=== PATIENT | female | born 1950 | race Caucasian/White ===

== ENCOUNTER 2018-02-09 15:55 | Inpatient (IN) | payer OTHER, MEDICARE ==
[~2018-02-09] VITALS: Ht 172.7 cm; Wt 87.9 kg
[2018-02-09 16:07] VITALS: BP 163/81; PULSE 73; RESP 18; TEMP 98; O2SAT 98
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
[2018-02-09] MEDS ORDERED: NALOXONE HCL 0.4 MG/ML AMP IV PUSH PRN (17:30)
[2018-02-09] MEDS ORDERED: BISACODYL 10 MG SUPP RECTAL PRN (17:30)
[2018-02-09] MEDS ORDERED: ONDANSETRON HCL 4 MG/2 ML VIAL IV PUSH PRN (17:30)
[2018-02-09] MEDS ORDERED: SENNOSIDES 8.6 MG TAB PO PRN (17:30)
[2018-02-09] MEDS ORDERED: LACTULOSE SYRUP 20 GM/30 ML CUP PO PRN (17:30)
[2018-02-09] MEDS ORDERED: MAGNESIUM HYDROXIDE SUSP 30 ML CUP PO PRN (17:30)
[2018-02-09] MEDS ORDERED: CHLORHEXIDINE GLUCONATE 2 % 1 PACK (2 CLOTHS) TOP PRN (17:30)
[2018-02-09] MEDS ORDERED: MISCELLANEOUS NURSING INFORMATION XX SCH (17:30)
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
[2018-02-09 19:30] VITALS: BP 151/72; PULSE 68; RESP 20; O2SAT 97; O2SAT 99
[2018-02-09] MEDS: GABAPENTIN 100 MG CAP PO SCH (19:50)
[2018-02-09] MEDS: SODIUM CHLOR 0.9% 1000 ML INJ 1,000 ML IV SCH (19:50)
[2018-02-09 20:00] VITALS: BP 176/88; PULSE 70; PULSE 78; RESP 15; RESP 18; TEMP 97.9; O2SAT 95
[2018-02-09] MEDS: DOCUSATE SODIUM 50 MG/SENNA 8.6 MG TAB PO SCH (21:00)
[2018-02-09] MEDS: ACETAMINOPHEN 1000 MG/100 ML 100 ML IV SCH ×2 (21:06→23:59)
[2018-02-09] MEDS: LIDOCAINE HCL 5% PATCH T-DERMAL SCH (21:07)
[2018-02-09] MEDS: METHOCARBAMOL 500 MG TAB PO SCH (21:07)
[2018-02-09 21:22] VITALS: O2SAT 95
[2018-02-09] MEDS: HYDROmorphone HCL PCA 6 MG/30 ML IV SCH (21:26)
[2018-02-09 22:00] VITALS: PULSE 63
[2018-02-09] MEDS: PCA - TOTAL MG DILAUDID DELIVERED PER SHIFT OTHER SCH (22:00)
[2018-02-09] MEDS: HEPARIN SODIUM - SQ 10,000 UNITS/ML VIAL SQ SCH (22:02)
[2018-02-10] VITALS (14 sets, daily range): BP systolic 95–140; BP diastolic 58–79; PULSE 52–82; RESP 14–24; TEMP 97.3–99.1; O2SAT 93–99
[2018-02-10] MEDS: CHLORHEXIDINE GLUCONATE 2 % 1 PACK (2 CLOTHS) TOP SCH (03:44)
[2018-02-10 04:50] LABS: AUTOMATED NEUTROPHIL # 2.9 TH/MM3 (1.8-7.7); BASOPHIL % 0.7 % (0.0-2.0); EOSINOPHIL # 0.1 TH/MM3 (0-0.4); EOSINOPHIL % 1.1 % (0.0-4.0); HEMATOCRIT 32.8 % (35.0-46.0); LYMPH % 29.3 % (9.0-44.0); LYMPHOCYTE # 1.5 TH/MM3 (1.0-4.8); MEAN CELL VOLUME 75.1 FL (80.0-100.0); MEAN CORPUSCULAR HEMOGLOBIN 25.2 PG (27.0-34.0); MEAN CORPUSCULAR HGB CONC 33.5 % (32.0-36.0); MEAN PLATELET VOLUME 8.1 FL (7.0-11.0); MONO % 10.2 % (0.0-8.0); MONOCYTE # 0.5 TH/MM3 (0-0.9); NEUT % 58.7 % (16.0-70.0); PLATELET COUNT 275 TH/MM3 (150-450); RED BLOOD COUNT 4.37 MIL/MM3 (4.00-5.30); RED CELL DISTRIBUTION WIDTH 16.3 % (11.6-17.2)
[2018-02-10] MEDS: SODIUM CHLOR 0.9% 1000 ML INJ 1,000 ML IV SCH ×2 (05:12→17:07)
[2018-02-10 05:21] LABS: BICARBONATE 27.2 MEQ/L (21.0-32.0); CALCIUM 8.6 MG/DL (8.5-10.1); CREATININE 0.74 MG/DL (0.50-1.00)
[2018-02-10] MEDS: ACETAMINOPHEN 1000 MG/100 ML 100 ML IV SCH ×2 (05:39→13:37)
[2018-02-10] MEDS: METHOCARBAMOL 500 MG TAB PO SCH ×3 (05:39→23:38)
[2018-02-10] MEDS: HEPARIN SODIUM - SQ 10,000 UNITS/ML VIAL SQ SCH ×3 (05:39→23:38)
[2018-02-10] MEDS: PCA - TOTAL MG DILAUDID DELIVERED PER SHIFT OTHER SCH ×2 (06:00→18:00)
--- NOTE | 2018-02-10 07:11 | RADRPT ---
EXAM DATE/TIME: 02/10/2018 03:26 [facility] COMPARISON: No previous studies available for comparison. INDICATIONS : Multiple rib fractures, pneumothorax. MEDICAL HISTORY : None. SURGICAL HISTORY : None. ENCOUNTER: Initial ACUITY: 1 day PAIN SCORE: 5/10 LOCATION: Left chest FINDINGS: A single view of the chest demonstrates multiple lateral rib fractures. Minimal atelectatic changes i n the left base but no pneumothorax. Heart size is normal. Degenerative spurring of the dorsal spine. CONCLUSION: 1. Multiple left-sided rib fractures. No pneumothorax. 2. Left basilar atelectatic changes. Lungs are otherwise clear. Martin Polo MD on February 10, 2018 at 7:08 Board Certified Radiologist. This report was verified electronically.
[2018-02-10] MEDS: REMOVE OLD PATCH T-DERMAL SCH ×2 (09:00→21:00)
[2018-02-10] MEDS: LIDOCAINE HCL 5% PATCH T-DERMAL SCH (09:50)
[2018-02-10] MEDS: DOCUSATE SODIUM 50 MG/SENNA 8.6 MG TAB PO SCH ×2 (09:50→21:00)
[2018-02-10] MEDS: GABAPENTIN 100 MG CAP PO SCH ×3 (09:51→18:10)
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
[2018-02-10] MEDS: HYDROmorphone HCL PCA 6 MG/30 ML IV SCH (19:51)
[2018-02-10] MEDS: FAMOTIDINE 20 MG TAB PO SCH (23:38)
[2018-02-11] VITALS (14 sets, daily range): BP systolic 140–165; BP diastolic 65–80; PULSE 61–88; RESP 18–23; TEMP 98.3–99; O2SAT 94–100
[2018-02-11] MEDS: CHLORHEXIDINE GLUCONATE 2 % 1 PACK (2 CLOTHS) TOP SCH ×2 (04:00→21:41)
--- NOTE | 2018-02-11 04:31 | RADRPT ---
EXAM DATE/TIME: 02/11/2018 02:44 [facility] COMPARISON: CHEST SINGLE AP, February 10, 2018, 3:26. INDICATIONS : Pneumothorax and multiple rib fractures. MEDICAL HISTORY : None. SURGICAL HISTORY : None. ENCOUNTER: Subsequent ACUITY: 2 days PAIN SCORE: 5/10 LOCATION: Left chest FINDINGS: A single view of the chest demonstrates worsening consolidation in the left lung base with possible d eveloping effusion. Right lung is clear. Heart size is borderline. Degenerative spurring of the dorsa l spine. Left-sided rib fractures CONCLUSION: Worsening consolidation in the left base. Possible developing effusion. Martin Polo MD on February 11, 2018 at 4:27 Board Certified Radiologist. This report was verified electronically.
[2018-02-11] MEDS: METHOCARBAMOL 500 MG TAB PO SCH ×3 (05:54→21:39)
[2018-02-11] MEDS: HEPARIN SODIUM - SQ 10,000 UNITS/ML VIAL SQ SCH ×3 (05:54→21:40)
[2018-02-11] MEDS: GABAPENTIN 100 MG CAP PO SCH ×3 (08:45→18:10)
[2018-02-11] MEDS: FAMOTIDINE 20 MG TAB PO SCH ×2 (08:45→20:11)
[2018-02-11] MEDS: DOCUSATE SODIUM 50 MG/SENNA 8.6 MG TAB PO SCH ×2 (08:45→20:11)
[2018-02-11] MEDS ORDERED: RESP: ALBUTEROL 2.5 MG/IPRATROPIUM 0.5 MG NEB (PRN) NEB (08:45)
[2018-02-11] MEDS: REMOVE OLD PATCH T-DERMAL SCH ×2 (08:46→21:00)
[2018-02-11] MEDS: LIDOCAINE HCL 5% PATCH T-DERMAL SCH (08:46)
[2018-02-11] MEDS ORDERED: ATENOLOL 50 MG TAB PO ONE (10:45)
[2018-02-11] MEDS: FUROSEMIDE 20 MG TAB PO SCH (12:04)
[2018-02-11] MEDS: SODIUM CHLOR 0.9% 1000 ML INJ 1,000 ML IV SCH ×2 (12:15→16:57)
[2018-02-11] MEDS ORDERED: ATEN50TA PO (12:49)
[2018-02-11] MEDS: PCA - TOTAL MG DILAUDID DELIVERED PER SHIFT OTHER SCH ×2 (14:00→21:40)
[2018-02-11] MEDS: RESP: ALBUTEROL 2.5 MG/IPRATROPIUM 0.5 MG NEB (SCH) NEB ×2 (16:42→21:17)
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
[2018-02-11] MEDS: HYDROmorphone HCL PCA 6 MG/30 ML IV SCH (23:29)
[2018-02-12] VITALS (9 sets, daily range): BP systolic 113–181; BP diastolic 60–81; PULSE 68–87; RESP 17–19; TEMP 97–98.7; O2SAT 91–99
[2018-02-12] MEDS: RESP: ALBUTEROL 2.5 MG/IPRATROPIUM 0.5 MG NEB (SCH) NEB ×4 (04:00→19:57)
[2018-02-12 04:32] LABS: AUTOMATED NEUTROPHIL # 3.5 TH/MM3 (1.8-7.7); BASOPHIL % 0.7 % (0.0-2.0); EOSINOPHIL # 0.1 TH/MM3 (0-0.4); EOSINOPHIL % 2.5 % (0.0-4.0); HEMATOCRIT 35.7 % (35.0-46.0); HEMOGLOBIN 11.9 GM/DL (11.6-15.3); LYMPH % 28.6 % (9.0-44.0); LYMPHOCYTE # 1.7 TH/MM3 (1.0-4.8); MEAN CELL VOLUME 75.8 FL (80.0-100.0); MEAN CORPUSCULAR HEMOGLOBIN 25.3 PG (27.0-34.0); MEAN CORPUSCULAR HGB CONC 33.3 % (32.0-36.0); MEAN PLATELET VOLUME 8.5 FL (7.0-11.0); MONO % 10.1 % (0.0-8.0); MONOCYTE # 0.6 TH/MM3 (0-0.9); NEUT % 58.1 % (16.0-70.0); PLATELET COUNT 265 TH/MM3 (150-450); RED CELL DISTRIBUTION WIDTH 16.5 % (11.6-17.2)
[2018-02-12 04:45] LABS: BICARBONATE 29.2 MEQ/L (21.0-32.0); CREATININE 0.55 MG/DL (0.50-1.00)
[2018-02-12] MEDS: SODIUM CHLOR 0.9% 1000 ML INJ 1,000 ML IV SCH (04:52)
[2018-02-12] MEDS: PCA - TOTAL MG DILAUDID DELIVERED PER SHIFT OTHER SCH (06:00)
--- NOTE | 2018-02-12 06:43 | RADRPT ---
EXAM DATE/TIME: 02/12/2018 05:28 [facility] COMPARISON: CHEST SINGLE AP, February 11, 2018, 2:44. INDICATIONS : Short of breath, pain left chest, evaluate pneumothorax and rib fractures MEDICAL HISTORY : pneumothorax, multiple rib fractures SURGICAL HISTORY : None. ENCOUNTER: Initial ACUITY: 3 days PAIN SCORE: 10/10 LOCATION: Left chest FINDINGS: There is increasing consolidation in the left lower lung with complete loss of delineation of the lef t hemidiaphragm. The right lung is clear. No evidence of pneumothorax. Multiple displaced left rib fractures CONCLUSION: Increasing left lower lobe consolidation. No evidence of pneumothorax. Leodan Nunez MD on February 12, 2018 at 6:41 Board Certified Radiologist. This report was verified electronically.
[2018-02-12] MEDS ORDERED: HYDROmorphone HCL PF 2 MG/ML VIAL IV PUSH PRN (07:30)
[2018-02-12] MEDS ORDERED: oxyCODONE/ACETAMINOPHEN 10 MG/325 MG TAB PO PRN (07:30)
[2018-02-12] MEDS ORDERED: ENALAPRILAT 1.25 MG/ML VIAL IV PUSH PRN (07:30)
[2018-02-12] MEDS: FAMOTIDINE 20 MG TAB PO SCH ×2 (08:18→21:39)
[2018-02-12] MEDS: FUROSEMIDE 20 MG TAB PO SCH (08:18)
[2018-02-12] MEDS: LIDOCAINE HCL 5% PATCH T-DERMAL SCH (08:18)
[2018-02-12] MEDS: GABAPENTIN 100 MG CAP PO SCH ×3 (08:18→17:42)
[2018-02-12] MEDS: IBUPROFEN 600 MG TAB PO SCH ×3 (08:18→21:38)
[2018-02-12] MEDS: HEPARIN SODIUM - SQ 10,000 UNITS/ML VIAL SQ SCH ×3 (08:19→21:40)
[2018-02-12] MEDS: REMOVE OLD PATCH T-DERMAL SCH ×2 (08:19→21:43)
[2018-02-12] MEDS: DOCUSATE SODIUM 50 MG/SENNA 8.6 MG TAB PO SCH ×2 (08:19→21:39)
[2018-02-12] MEDS: oxyCODONE/ACETAMINOPHEN 5 MG/325 MG TAB PO PRN ×4 (08:25→21:39)
[2018-02-12] MEDS: METHOCARBAMOL 500 MG TAB PO SCH ×3 (08:25→21:39)
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
[2018-02-13] VITALS (7 sets, daily range): BP systolic 125–163; BP diastolic 70–79; PULSE 70–104; RESP 17–19; TEMP 96.1–97.9; O2SAT 92–99
[2018-02-13] MEDS: RESP: ALBUTEROL 2.5 MG/IPRATROPIUM 0.5 MG NEB (SCH) NEB ×4 (03:29→21:08)
[2018-02-13] MEDS: oxyCODONE/ACETAMINOPHEN 5 MG/325 MG TAB PO PRN ×5 (05:40→21:38)
[2018-02-13] MEDS: METHOCARBAMOL 500 MG TAB PO SCH ×3 (05:40→21:38)
[2018-02-13] MEDS: IBUPROFEN 600 MG TAB PO SCH ×3 (05:40→21:38)
[2018-02-13] MEDS: HEPARIN SODIUM - SQ 10,000 UNITS/ML VIAL SQ SCH ×3 (05:40→21:39)
--- NOTE | 2018-02-13 07:05 | RADRPT ---
EXAM DATE/TIME: 02/13/2018 05:38 [place] COMPARISON: CHEST SINGLE AP, February 12, 2018, 5:28. INDICATIONS : Short of breath, chest and rib discomfort MEDICAL HISTORY : pneumothorax, rib fractures SURGICAL HISTORY : None. ENCOUNTER: Subsequent ACUITY: 4 - 6 days PAIN SCORE: 6/10 LOCATION: Bilateral chest FINDINGS: Consolidation in the left lower lung with loss of delineation of the entire left hemidiaphragm. Ther e is also hazy opacity of the lower left chest suggesting a combination of consolidation and pleural effusion. Right lung is clear. The heart is normal size. Left rib fractures. CONCLUSION: Persistent left lower lobe consolidation and probable associated pleural effusion. Leodan Nunez MD on February 13, 2018 at 7:03 Board Certified Radiologist. This report was verified electronically.
[2018-02-13] MEDS ORDERED: PERI PO (07:18)
[2018-02-13] MEDS ORDERED: MAGN30S PO (07:18)
[2018-02-13] MEDS ORDERED: BISACODYL 10 MG SUPP RECTAL ONE (07:30)
[2018-02-13] MEDS ORDERED: BISACODYL EC 5 MG TABEC PO ONE (07:30)
[2018-02-13] MEDS: REMOVE OLD PATCH T-DERMAL SCH ×2 (09:00→21:42)
[2018-02-13] MEDS: GABAPENTIN 100 MG CAP PO SCH ×3 (09:15→17:18)
[2018-02-13] MEDS: FUROSEMIDE 20 MG TAB PO SCH (09:16)
[2018-02-13] MEDS: DOCUSATE SODIUM 50 MG/SENNA 8.6 MG TAB PO SCH ×2 (09:16→21:38)
[2018-02-13] MEDS: FAMOTIDINE 20 MG TAB PO SCH ×2 (09:16→21:38)
[2018-02-13] MEDS: LIDOCAINE HCL 5% PATCH T-DERMAL SCH (09:17)
[2018-02-13] MEDS ORDERED: GABA100C4 PO (12:58)
[2018-02-13] MEDS ORDERED: OXYC1TAB63 PO (12:58)
[2018-02-13] MEDS ORDERED: IBUP-232 PO (12:58)
[2018-02-13] MEDS ORDERED: METH500T3 PO (12:58)
[2018-02-13] MEDS ORDERED: LIDO1ADH4 T-DERMAL (12:58)
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
[2018-02-13] MEDS ORDERED: PADIMATE (CHAPSTICK) 4.5 GM TUBE TOPICAL PRN (23:00)
[2018-02-14] MEDS: oxyCODONE/ACETAMINOPHEN 5 MG/325 MG TAB PO PRN ×2 (01:55→06:04)
[2018-02-14 04:18] VITALS: O2SAT 93
[2018-02-14] MEDS: IBUPROFEN 600 MG TAB PO SCH ×3 (06:04→22:18)
[2018-02-14] MEDS: HEPARIN SODIUM - SQ 10,000 UNITS/ML VIAL SQ SCH ×3 (06:04→22:18)
[2018-02-14] MEDS: METHOCARBAMOL 500 MG TAB PO SCH ×3 (06:04→22:18)
[2018-02-14 07:36] VITALS: BP 139/71; PULSE 90; RESP 18; TEMP 96.1; O2SAT 94
[2018-02-14] MEDS: RESP: ALBUTEROL 2.5 MG/IPRATROPIUM 0.5 MG NEB (SCH) NEB ×3 (08:13→22:14)
[2018-02-14 08:27] VITALS: O2SAT 95
[2018-02-14] MEDS: REMOVE OLD PATCH T-DERMAL SCH ×2 (09:00→22:22)
[2018-02-14] MEDS: DOCUSATE SODIUM 50 MG/SENNA 8.6 MG TAB PO SCH ×2 (09:08→22:18)
[2018-02-14] MEDS: FAMOTIDINE 20 MG TAB PO SCH ×2 (09:08→22:18)
[2018-02-14] MEDS: GABAPENTIN 100 MG CAP PO SCH ×3 (09:09→18:29)
[2018-02-14] MEDS: FUROSEMIDE 20 MG TAB PO SCH (09:09)
[2018-02-14] MEDS: LIDOCAINE HCL 5% PATCH T-DERMAL SCH (09:09)
[2018-02-14 11:51] VITALS: BP 119/73; PULSE 90; RESP 18; TEMP 96.7; O2SAT 94
[2018-02-14 15:38] VITALS: BP 147/80; PULSE 100; RESP 18; TEMP 97.3; O2SAT 92
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
[2018-02-14 22:14] VITALS: O2SAT 92
[2018-02-15] VITALS (7 sets, daily range): BP systolic 121–158; BP diastolic 71–81; PULSE 93–112; RESP 16–20; TEMP 96–98.3; O2SAT 67–98
[2018-02-15] MEDS: RESP: ALBUTEROL 2.5 MG/IPRATROPIUM 0.5 MG NEB (SCH) NEB ×2 (04:08→07:51)
[2018-02-15] MEDS: METHOCARBAMOL 500 MG TAB PO SCH ×3 (05:40→21:40)
[2018-02-15] MEDS: HEPARIN SODIUM - SQ 10,000 UNITS/ML VIAL SQ SCH ×3 (05:40→21:42)
[2018-02-15] MEDS: IBUPROFEN 600 MG TAB PO SCH ×3 (05:41→21:40)
[2018-02-15] MEDS ORDERED: Heparin Inj SQ (07:11)
[2018-02-15] MEDS: REMOVE OLD PATCH T-DERMAL SCH ×2 (09:00→21:00)
[2018-02-15] MEDS: DOCUSATE SODIUM 50 MG/SENNA 8.6 MG TAB PO SCH ×2 (09:55→21:40)
[2018-02-15] MEDS: FAMOTIDINE 20 MG TAB PO SCH ×2 (09:55→21:40)
[2018-02-15] MEDS: FUROSEMIDE 20 MG TAB PO SCH (09:55)
[2018-02-15] MEDS: GABAPENTIN 100 MG CAP PO SCH ×3 (09:55→18:20)
[2018-02-15] MEDS: LIDOCAINE HCL 5% PATCH T-DERMAL SCH (09:56)
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
[2018-02-16] VITALS: BP 159/78; PULSE 110; RESP 18; TEMP 98; O2SAT 94
[2018-02-16] MEDS: METHOCARBAMOL 500 MG TAB PO SCH ×2 (06:10→13:04)
[2018-02-16] MEDS: IBUPROFEN 600 MG TAB PO SCH ×2 (06:10→13:06)
[2018-02-16] MEDS: HEPARIN SODIUM - SQ 10,000 UNITS/ML VIAL SQ SCH ×2 (06:11→13:11)
[2018-02-16 08:00] VITALS: BP 184/88; PULSE 93; RESP 18; TEMP 96; O2SAT 94
[2018-02-16] MEDS: GABAPENTIN 100 MG CAP PO SCH ×2 (08:21→13:05)
[2018-02-16] MEDS: FUROSEMIDE 20 MG TAB PO SCH (08:21)
[2018-02-16] MEDS: FAMOTIDINE 20 MG TAB PO SCH (08:21)
[2018-02-16] MEDS: DOCUSATE SODIUM 50 MG/SENNA 8.6 MG TAB PO SCH (08:21)
[2018-02-16] MEDS: LIDOCAINE HCL 5% PATCH T-DERMAL SCH (08:22)
[2018-02-16] MEDS: REMOVE OLD PATCH T-DERMAL SCH (08:22)
[2018-02-16 12:00] VITALS: BP 143/93; PULSE 106; RESP 16; TEMP 98; O2SAT 96
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
== END 2018-02-16 15:24 | disposition home health service (06) | DRG 200 ==
LOC: NEPE 15:55 → NEDA 18:35 → N03B 20:20 → N06B 02-11 20:32
PROVIDERS: ADMIT Surgery Trauma Surgery; ATTEND Surgery Trauma Surgery
DX: S27.0XXA Traumatic pneumothorax, initial encounter (principal); S22.43XA Multiple fractures of ribs, bilateral, initial encounter for closed fracture; S22.019A Unspecified fracture of first thoracic vertebra, initial encounter for closed fracture; J98.11 Atelectasis; S22.029A Unspecified fracture of second thoracic vertebra, initial encounter for closed fracture; V43.52XA Car driver injured in collision with other type car in traffic accident, initial encounter; Y92.410 Unspecified street and highway as the place of occurrence of the external cause; I10 Essential (primary) hypertension
CPT/HCPCS: 71045; 80048; 85025; 87641; 94150; 94640; 94664; 94667; 94668; 99283; J0131; J1170; J1644; J7030